=== PATIENT | male | born 1990 | race Two or more races ===

== ENCOUNTER 2020-09-13 14:38 | Emergency (ER) | payer SELFPAY ==
[~2020-09-13] VITALS: Ht 177.8 cm; Wt 136.5 kg
[2020-09-13] MEDS ORDERED: SODIUM CHLORIDE 0.9% 1,000 ML IV ONE ×2 (15:00)
[2020-09-13 15:22] LABS: BASOPHILS % 0.5 % (0.0-2.0); EOSINOPHILS % 2.2 % (0.0-5.0); HEMATOCRIT. 42.6 % (42.0-52.0); HEMOGLOBIN. 13.9 g/dL (14.0-18.0); MEAN CORPUSCULAR HEMOGLOBIN 27.9 pg (28.0-32.0); MEAN CORPUSCULAR VOLUME 85.4 fL (80.0-94.0); MEAN PLATELET VOLUME 9.7 fl (7.4-10.4); MONOCYTES % 5.6 % (2.0-8.0); NEUTROPHILS % 77.7 % (40.0-76.0); PLATELET 264 x1000/uL (130-400); RED BLOOD CELL COUNT 4.99 mill/uL (4.7-6.1); RED CELL DISTRIBUTION WIDTH 13.7 % (11.6-14.6)
[2020-09-13 15:27] LABS: CHLORIDE 109 mEq/L (98-107)
[2020-09-13 15:29] LABS: PROTHROMBIN TIME 10.9 sec (9.6-11.0)
[2020-09-13 19:58] VITALS: BP 136/72
== END 2020-09-13 20:00 | disposition home or self-care (01) ==
LOC: ER 15:04
DX: I95.9 Hypotension, unspecified (principal); E86.0 Dehydration; R55 Syncope and collapse; F12.10 Cannabis abuse, uncomplicated; F15.10 Other stimulant abuse, uncomplicated; F17.210 Nicotine dependence, cigarettes, uncomplicated; X30.XXXA Exposure to excessive natural heat, initial encounter; Y93.89 Activity, other specified; Y92.89 Other specified places as the place of occurrence of the external cause
CPT/HCPCS: 36415; 71045; 80053; 83605; 83690; 83880; 84484; 85025; 85610; 93005; 99285; J7030